=== PATIENT | female | born 1965 | race American Indian/Alaskan Native ===

== ENCOUNTER 2016-08-06 00:30 | Emergency (ER) | payer MEDICAID ==
--- NOTE | 2016-08-06 01:46 | ED PDOC ---
Arrival/HPI - General Time Seen by Provider: 08/06/16 01:21 Historian: Patient - History of Present Illness Narrative History of Present Illness (Text): 08/06/16 01:42 Latisha Seo is a 51 year old female who presents to the Emergency department complaining of a retained tampon. Patient states her tampon became stuck yesterday evening and reports she made multiple unsuccessful attempts to retrieve it. Patient denies any fever, chills, abdominal pain, urinary symptoms , or any other complaints. Time/Duration: Other (yesterday) Symptom Onset: Gradual Symptom Course: Unchanged Activities at Onset: Rest, Light Context: Home Past Medical History - Provider Review Nursing Documentation Reviewed: Yes - Infectious Disease Hx of Infectious Diseases: None - Cardiac Hx Hypertension: Yes - Hematological/Oncological Hx Anemia: Yes - Musculoskeletal/Rheumatological Hx Falls: No - Gastrointestinal Hx Gastroesophageal Reflux: Yes - Psychiatric Hx Depression: No Hx Emotional Abuse: No Hx Physical Abuse: No Hx Substance Use: No - Surgical History Hx Section: Yes Hx Orthopedic Surgery: Yes (R ANKLE) - Suicidal Assessment Feels Threatened In Home Enviroment: No Family/Social History - Physician Review Nursing Documentation Reviewed: Yes Family/Social History: No Known Family HX Smoking Status: Never Smoked Hx Alcohol Use: No Hx Substance Use: No Allergies/Home Meds Allergies/Adverse Reactions: Allergies No Known Allergies Allergy (Verified 08/06/16 01:56) Home Medications: Home Meds Medication Instructions Recorded Confirmed Aspirin [Ecotrin] 81 mg PO DAILY 10/29/15 08/06/16 Atenolol [Tenormin] 50 mg PO DAILY 10/29/15 08/06/16 Ferrous Sulfate [Iron] 325 mg PO BID 10/29/15 08/06/16 Omeprazole 40 mg PO DAILY 10/29/15 08/06/16 Triamterene/Hydrochlorothiazid 1 cap PO DAILY 10/29/15 08/06/16 [Triamterene-Hctz 37.5-25 mg Cp] amLODIPine [Norvasc] 10 mg PO DAILY 10/29/15 08/06/16 hydrALAZINE [Apresoline] 25 mg PO TID 10/29/15 08/06/16 Cetirizine HCl [Allergy Relief] 10 mg PO DAILY 08/06/16 08/06/16 Montelukast [Singulair] 10 mg PO DAILY 08/06/16 08/06/16 Review of Systems - Physician Review All systems were reviewed & negative as marked: Yes - Review of Systems Constitutional: Normal. absent: Fevers Respiratory: Normal Cardiovascular: Normal Gastrointestinal: Normal. absent: Abdominal Pain Genitourinary Female: Other (+tampon stuck). absent: Frequency, Hematuria, Urine Output Changes Musculoskeletal: Normal Skin: Normal Neurological: Normal Endocrine: Normal Hemo/Lymphatic: Normal Psychiatric: Normal Physical Exam Vital Signs Reviewed: Yes Vital Signs Temp Pulse Resp BP Pulse Ox 08/06/16 01:56 97.7 F 70 16 147/97 H 99 Temperature: Afebrile Blood Pressure: Normal Pulse: Regular Respiratory Rate: Normal Appearance: Positive for: Well-Appearing, Non-Toxic, Comfortable Pain Distress: None Mental Status: Positive for: Alert and Oriented X 3 - Systems Exam Head: Present: Atraumatic, Normocephalic Pupils: Present: PERRL Extroacular Muscles: Present: EOMI Conjunctiva: Present: Normal Mouth: Present: Moist Mucous Membranes Neck: Present: Normal Range of Motion Respiratory/Chest: Present: Clear to Auscultation, Good Air Exchange. No: Respiratory Distress, Accessory Muscle Use Cardiovascular: Present: Regular Rate and Rhythm, Normal S1, S2. No: Murmurs Abdomen: Present: Normal Bowel Sounds. No: Tenderness, Distention, Peritoneal Signs Genitourinary/Pelvic Exam: Present: Normal External Genitalia, Cervical os Closed, Other (Tampon visualized, Scribe Nicoel Tony present as wellness nurse rn). No: Cervical Motion Tendernes Back: Present: Normal Inspection Upper Extremity: Present: Normal Inspection. No: Cyanosis, Edema Lower Extremity: Present: Normal Inspection. No: Edema Neurological: Present: GCS=15, CN II-XII Intact, Speech Normal Skin: Present: Warm, Dry, Normal Color. No: Rashes Psychiatric: Present: Alert, Oriented x 3, Normal Insight, Normal Concentration Medical Decision Making ED Course and Treatment: 08/06/16 01:42 Impression: 51 year old female complaining of a retained tampon since yesterday. Differential Diagnosis included but are not limited to: foreign body Plan: -- Tampon Extraction -- Reassess and disposition Progress Notes: 08/06/16 02:07 PROCEDURE: FOREIGN BODY REMOVAL Performed by the emergency provider Timeout: A timeout to verify the correct patient, procedure, and site was performed immediately prior to the procedure. Indication: Foreign body in vaginal vault. Procedure: Tampon removed in one piece. Post-procedure: Patient tolerated the procedure well with no immediate complications. - Scribe Statement The provider has reviewed the documentation as recorded by the Jeannette Jimenez Provider Attestation: All medical record entries made by the Scribdavid were at my direction and personally dictated by me. I have reviewed the chart and agree that the record accurately reflects my personal performance of the history, physical exam, medical decision making, and the department course for this patient. I have also personally directed, reviewed, and agree with the discharge instructions and disposition. Disposition/Present on Arrival - Present on Arrival Any Indicators Present on Arrival: No History of DVT/PE: No History of Uncontrolled Diabetes: No Urinary Catheter: No History Surgical Site Infection Following: None - Disposition Have Diagnosis and Disposition been Completed?: Yes Diagnosis: Vaginal foreign body Disposition: HOME/ ROUTINE Disposition Time: 02:00 Condition: STABLE Discharge Instructions (ExitCare): Vaginal Foreign Body (ED) Additional Instructions: follow up with your doctor. return to er with worsening symptoms or concerns. Referrals: Khurram Pace [Medical Doctor] - Follow up with primary
[2016-08-06 01:55] VITALS: BMI 29.7
[2016-08-06 01:58] VITALS: BP 147/97; PULSE 70; RESP 16; TEMP 97.7; O2SAT 99
== END 2016-08-06 02:15 | disposition home or self-care (01) ==
LOC: ED 00:30
DX: T19.2XXA Foreign body in vulva and vagina, initial encounter (principal); X58.XXXA Exposure to other specified factors, initial encounter; Y92.009 Unspecified place in unspecified non-institutional (private) residence as the place of occurrence of the external cause; I10 Essential (primary) hypertension

== ENCOUNTER 2017-01-24 14:13 | Emergency (ER) | payer MEDICAID ==
[2017-01-24 14:32] VITALS: BMI 37.0
[2017-01-24] MEDS ORDERED: Morphine 2 mg/ml ISec IVP STA (14:34)
--- NOTE | 2017-01-24 14:40 | ED PDOC ---
Arrival/HPI - General Historian: Patient <Tanner Chatman A - Last Filed: 01/24/17 18:35> <Macrina Dalton - Last Filed: 01/24/17 23:36> - General Time Seen by Provider: 01/24/17 14:24 - History of Present Illness Narrative History of Present Illness (Text): 01/24/17 14:35 51yo morbidly obese female with PMHx of hypertension brought to ED by edna from Dr. Mejia's office for elevated BP. Patient notes that she has been having sharp mid upper back pain and feeling weak x 2days. Became nauseous today and having LAND. Saw her PMD today for these symptoms and her BP was 237/130 in the Doctor's office. Notes that she also had "abdominal discomfort" today. She denies chest pain, urinary symptoms, trauma, diaphoresis, LE edema, calf pain, dizziness, visual changes, focal weakness, headache, any other complaint. (Tanner Chatman A) Past Medical History - Provider Review Nursing Documentation Reviewed: Yes - Infectious Disease Hx of Infectious Diseases: None - Cardiac Hx Hypertension: Yes - Hematological/Oncological Hx Anemia: Yes - Musculoskeletal/Rheumatological Hx Falls: No - Gastrointestinal Hx Gastroesophageal Reflux: Yes - Psychiatric Hx Depression: No Hx Emotional Abuse: No Hx Physical Abuse: No Hx Substance Use: No - Surgical History Hx Section: Yes Hx Orthopedic Surgery: Yes (R ANKLE) - Suicidal Assessment Feels Threatened In Home Enviroment: No <Tanner Chatman A - Last Filed: 01/24/17 18:35> Family/Social History - Physician Review Nursing Documentation Reviewed: Yes Family/Social History: Unknown Family HX Smoking Status: Never Smoked Hx Alcohol Use: No Hx Substance Use: No <Tanner Chatman A - Last Filed: 01/24/17 18:35> Allergies/Home Meds <Tanner Chatman A - Last Filed: 01/24/17 18:35> <Macrina Dalton - Last Filed: 01/24/17 23:36> Allergies/Adverse Reactions: Allergies No Known Allergies Allergy (Verified 08/06/16 01:56) Home Medications: Home Meds Medication Instructions Recorded Confirmed Aspirin [Ecotrin] 81 mg PO DAILY 10/29/15 01/24/17 Atenolol [Tenormin] 50 mg PO DAILY 10/29/15 01/24/17 Ferrous Sulfate [Iron] 325 mg PO BID 10/29/15 01/24/17 Omeprazole 40 mg PO DAILY 10/29/15 01/24/17 Triamterene/Hydrochlorothiazid 25 mg PO DAILY 10/29/15 01/24/17 [Triamterene-Hctz 37.5-25 mg Cp] amLODIPine [Norvasc] 10 mg PO DAILY 10/29/15 01/24/17 hydrALAZINE [Apresoline] 25 mg PO DAILY 10/29/15 01/24/17 Cetirizine HCl [Allergy Relief] 10 mg PO DAILY 08/06/16 01/24/17 Montelukast [Singulair] 10 mg PO DAILY 08/06/16 01/24/17 Review of Systems - Physician Review All systems were reviewed & negative as marked: Yes - Review of Systems Constitutional: Normal Eyes: Normal ENT: Normal Respiratory: Normal Cardiovascular: LAND. absent: Chest Pain, Palpitations, Edema, Calf Pain, Orthopnea Gastrointestinal: Vomiting. absent: Abdominal Pain, Constipation, Diarrhea, Nausea, Hematochezia, Hematemesis Genitourinary Female: Normal Musculoskeletal: Back Pain Skin: Normal Neurological: Normal Endocrine: Normal Hemo/Lymphatic: Normal Psychiatric: Normal <Tanner Chatman A - Last Filed: 01/24/17 18:35> Physical Exam Vital Signs Reviewed: Yes Temperature: Afebrile Blood Pressure: Normal Pulse: Regular Respiratory Rate: Normal Appearance: Positive for: Well-Appearing, Non-Toxic, Comfortable, Other ( Morbidly obese) Pain Distress: None Mental Status: Positive for: Alert and Oriented X 3 - Systems Exam Head: Present: Atraumatic, Normocephalic Pupils: Present: PERRL Extroacular Muscles: Present: EOMI Conjunctiva: Present: Normal Mouth: Present: Moist Mucous Membranes Neck: Present: Normal Range of Motion Respiratory/Chest: Present: Clear to Auscultation, Good Air Exchange. No: Respiratory Distress, Accessory Muscle Use, Wheezes, Decreased Breath Sounds, Rales, Retracting, Rhonchi Cardiovascular: Present: Regular Rate and Rhythm, Normal S1, S2. No: Murmurs Abdomen: Present: Normal Bowel Sounds, Other (Soft). No: Tenderness, Distention , Peritoneal Signs, Rebound, Guarding, McBurney's Point Tender, Rovsing's Sign Present, Mass/Organomegaly Back: Present: Normal Inspection Upper Extremity: Present: Normal Inspection. No: Cyanosis, Edema Lower Extremity: Present: Normal Inspection. No: Edema Neurological: Present: GCS=15, CN II-XII Intact, Speech Normal, Motor Func Grossly Intact, Normal Sensory Function, Normal Cerebellar Funct, Memory Normal , Other (No focla neurological deficit) Skin: Present: Warm, Dry, Normal Color. No: Rashes Psychiatric: Present: Alert, Oriented x 3, Normal Insight, Normal Concentration <Tanner Chatman A - Last Filed: 01/24/17 18:35> Vital Signs Temp Pulse Resp BP Pulse Ox 01/24/17 18:50 69 17 156/88 H 99 01/24/17 17:55 69 18 158/99 H 98 01/24/17 17:00 75 18 171/104 H 97 01/24/17 15:57 80 16 167/106 H 97 01/24/17 15:39 88 198/129 H 01/24/17 15:32 77 17 194/129 H 97 01/24/17 15:16 98.1 F 77 18 184/117 H 97 01/24/17 14:35 79 18 184/117 H 98 Medical Decision Making <LurdesTanner A - Last Filed: 01/24/17 18:35> <Macrina Dalton - Last Filed: 01/24/17 23:36> ED Course and Treatment: 01/24/17 14:45 51yo female in ED for elevated BP, upper back pain. PT will be evaluated and BP will be managed in ED with medication. Most concerning symptoms for dissection Labs ordered Morphine, Hydralazine 10mg ordered Dissection CT ordered Will re assesses pt 01/24/17 18:36 On re evaluation pt states pain improved, but still have mild pain and valium was ordered. On r evaluation she notes that she feel much better. Zofran and protonix was also ordered. Her BP improved significantly in ED. She remain neurologically intact . Lab was unremarkable CT CTA dissection protocol Indication: HTN/Upper back pain Comparison: None available Technique: Contrast dose: 110 mL Omnipaque 350 Total exam DLP: 1664.15 Axial computed tomographic angiogram images of the abdomen and pelvis were performed after bolus administration of intravenous contrast. Sagittal coronal reformatted images were generated and reviewed. This CT exam was performed using 1 or more of the falling dose reduction techniques: Automated exposure control, adjustment of the MAA and/or kV according to patient size, and/or use of iterative reconstruction technique. Findings: Visualized inferior thyroid gland appears unremarkable. The unenhanced mediastinal and hilar vascular structures appear grossly unremarkable. Cardiomegaly. Ascending aortic aneurysm approximately 4.2 cm in AP dimension. The remainder of the thoracic and abdominal aorta appear within normal limits of caliber. No evidence of dissection. There is normal course and contour of the common iliac arteries. The celiac artery origin is widely patent. The superior mesenteric artery origin is widely patent. The inferior mesenteric artery origin is patent. Bilateral renal arteries appear patent. The liver appears within normal limits of size and morphology. The pancreas, spleen, adrenal glands, and gallbladder appear unremarkable. The kidneys enhance symmetrically without evidence of hydronephrosis or obstructing renal calculi. No bulky adenopathy identified. Visualized bowel loops appear within normal limits of caliber without evidence of obstruction. Diverticulosis without CT evidence of acute diverticulitis. The appendix appears within normal limits of caliber. No secondary signs of acute appendicitis. No inflammatory changes are seen in the right lower quadrant to suggest acute appendicitis. No definite free air. The urinary bladder appears unremarkable. Lobulated uterus appears consistent with fibroids. Tampon. 13 mm probable splenule. No significant pelvic free fluid is identified. 10 mm anterolisthesis of L5 on S1. Impression: Ascending aortic aneurysm approximately 4.2 cm in AP dimension. Diverticulosis without CT evidence of acute diverticulitis. Fibroid uterus. Additional incidental findings as above. Pt's back pain is likely MS in nature, hence she notes pain with movement and palpation. Result was DW Dr. Mejia and he recommends that pt be discharged home and instructed to continue with her medications. States patient should follow up with his office. (Tanner Chatman) - Lab Interpretations Lab Results: 01/24/17 15:13 01/24/17 15:13 Lab Results 01/24/17 17:09: Urine Color Yellow, Urine Appearance Clear, Urine pH 6.0, Ur Specific [place] 1.015, Urine Protein Negative, Urine Glucose (UA) Negative, Urine Ketones Negative, Urine Blood Negative, Urine Nitrate Negative, Urine Bilirubin Negative, Urine Urobilinogen 0.2, Ur Leukocyte Esterase Negative 01/24/17 15:13: Sodium 139, Potassium 3.6, Chloride 106, Carbon Dioxide 26, Anion Gap 12, BUN 11, Creatinine 0.9, Est GFR ( Amer) > 60, Est GFR (Non- Af Amer) > 60, Random Glucose 95, Calcium 8.6, Magnesium 1.8, Total Bilirubin 0.6, AST 26, ALT 27, Alkaline Phosphatase 106, Lactate Dehydrogenase 585, Total Creatine Kinase 111, Troponin I 0.01, NT-Pro-B Natriuret Pep 106, Total Protein 7.6, Albumin 4.0, Globulin 3.6, Albumin/Globulin Ratio 1.1 01/24/17 15:13: PT 10.9, INR 1.00, APTT 33.9 01/24/17 15:13: WBC 6.5, RBC 4.20, Hgb 11.1 L, Hct 35.4 L, MCV 84.3, MCH 26.4, MCHC 31.4, RDW 15.2 H, Plt Count 313, MPV 9.2, Gran % 81.1 H, Lymph % (Auto) 12.2 L, [place] % (Auto) 4.8, Eos % (Auto) 1.7, Baso % (Auto) 0.2, Gran # 5.23, Lymph # 0.8 L, [place] # 0.3, Eos # 0.1, Baso # 0.01 - RAD Interpretation Radiology Orders: 01/24/17 14:32 ANGIOGRAPHY DISECTION PROTOCOL [CT] Stat - Medication Orders Current Medication Orders: Discontinued Medications Diazepam (Valium) 5 mg IVP ONCE ONE PRN Reason: Protocol Stop: 01/24/17 17:34 Last Admin: 01/24/17 18:14 Dose: 5 mg IVP Administration Document 01/24/17 18:14 SF (Rec: 01/24/17 18:[address] [facility] [id number]) Charges for Administration # of IVP Administrations 1 Hydralazine HCl (Apresoline) 10 mg IVP STAT STA Stop: 01/24/17 14:56 Last Admin: 01/24/17 15:39 Dose: 10 mg IVP Administration Document 01/24/17 15:39 SF (Rec: 01/24/17 15:[address] [facility] [id number]) Charges for Administration # of IVP Administrations 1 MAR Pulse and Blood Pressure Document 01/24/17 15:39 SF (Rec: 01/24/17 15:39 [facility] Pulse Pulse Rate (60-90) 88 Blood Pressure Blood Pressure (100/60-150/90) 198/129 Morphine Sulfate (Morphine) 2 mg IVP STAT STA Stop: 01/24/17 14:35 Last Admin: 01/24/17 15:33 Dose: 2 mg MAR Pain Assessment Document 01/24/17 15:33 SF (Rec: 01/24/17 15:33 [facility] Pain Reassessment Is this a pain reassessment? Yes Sleep Is patient sleeping during reassessment? No Presence of Pain Presence of Pain Yes Location Pain Location Body Site Back IVP Administration Document 01/24/17 15:33 SF (Rec: 01/24/17 15:33 SF [place] [id number]) Charges for Administration # of IVP Administrations 1 Ondansetron HCl (Zofran Inj) 4 mg IVP STAT STA Stop: 01/24/17 18:10 Last Admin: 01/24/17 18:14 Dose: Pantoprazole Sodium (Protonix Inj) 40 mg IVP STAT STA Stop: 01/24/17 18:10 Last Admin: 01/24/17 18:32 Dose: 40 mg IVP Administration Document 01/24/17 18:32 SF (Rec: 01/24/17 18:40 SF [place] [id number]) Charges for Administration # of IVP Administrations 1 - PA / PRESS LOADER / Resident Statement / has reviewed & agrees with the documentation as recorded. <Macrina Dalton - Last Filed: 01/24/17 23:36> Disposition/Present on Arrival - Present on Arrival Any Indicators Present on Arrival: No History of DVT/PE: No History of Uncontrolled Diabetes: No Urinary Catheter: No History Surgical Site Infection Following: None - Disposition Have Diagnosis and Disposition been Completed?: Yes Disposition Time: 18:30 Patient Plan: Discharge <Tanner Chatman - Last Filed: 01/24/17 18:35> <Macrina Dalton - Last Filed: 01/24/17 23:36> - Disposition Diagnosis: Hypertension, Back pain, Vomiting Disposition: HOME/ ROUTINE Condition: STABLE Discharge Instructions (ExitCare): Hypertension (ED), Back Pain (ED) Additional Instructions: Follow up with your doctor continue with your medication at home Return to ED for any new or worsening symptoms Prescriptions: Cyclobenzaprine [Cyclobenzaprine HCl] 10 mg PO TID #10 tab Ibuprofen [Motrin Tab] 600 mg PO Q6 #20 tab Ondansetron ODT [Zofran ODT] 4 mg PO Q6 #8 odt Referrals: Christiano Mejia MD [Primary Care Provider] - Follow up with primary Forms: [employer] ([place]ian)
[2017-01-24 15:17] VITALS: TEMP 98.1
[2017-01-24 15:46] LABS: BASO # 0.01 K/mm3 (0.0-2.0); BASO % 0.2 % (0.0-3.0); EOS # 0.1 (0.0-0.7); EOS % 1.7 % (1.5-5.0); GRAN # 5.23 (1.4-6.5); GRAN % 81.1 % (50.0-68.0); HEMATOCRIT 35.4 % (36.0-48.0); LYMPH # 0.8 (1.2-3.4); LYMPH % 12.2 % (22.0-35.0); MEAN CELL VOLUME 84.3 fl (80.0-105.0); MEAN CORPUSCULAR HEMOGLOBIN 26.4 pg (25.0-35.0); MEAN CORPUSCULAR HGB CONC 31.4 g/dl (31.0-37.0); MEAN PLATELET VOLUME 9.2 fl (7.0-11.0); MONO # 0.3 (0.1-0.6); MONO % 4.8 % (1.0-6.0); RED CELL DISTRIBUTION WIDTH 15.2 % (11.5-14.5); WHITE BLOOD COUNT 6.5 10^3/ul (4.5-11.0)
[2017-01-24 15:56] LABS: ALB/GLOB RATIO 1.1 (1.1-1.8); ALKALINE PHOSPHATASE 106 U/L (38-126); ALT/SGPT 27 U/L (7-56); AST/SGOT 26 U/L (14-36); BILIRUBIN,TOTAL 0.6 mg/dL (0.2-1.3); BLOOD UREA NITROGEN 11 mg/dL (7-21); CALCIUM 8.6 mg/dL (8.4-10.5); CARBON DIOXIDE 26 mmol/L (21-33); CHLORIDE 106 mmol/L (98-107); GFR AFRICAN-AMERICAN > 60; GLUCOSE,RANDOM 95 mg/dL (70-110); MAGNESIUM 1.8 mg/dL (1.7-2.2); POTASSIUM 3.6 mmol/L (3.6-5.0); SODIUM 139 mmol/L (132-148); TOTAL PROTEIN 7.6 g/dL (5.8-8.3)
[2017-01-24 16:06] LABS: PARTIAL THROMBOPLASTIN TIME 33.9 Seconds (25.1-36.5)
[2017-01-24 16:13] LABS: TROPONIN I 0.01 ng/mL
--- NOTE | 2017-01-24 17:29 | CT ---
CTA dissection protocol Indication: HTN/Upper back pain Comparison: None available Technique: Contrast dose: 110 mL Omnipaque 350 Total exam DLP: 1664.15 Axial computed tomographic angiogram images of the abdomen and pelvis were performed after bolus administration of intravenous contrast. Sagittal coronal reformatted images were generated and reviewed. This CT exam was performed using 1 or more of the falling dose reduction techniques: Automated exposure control, adjustment of the MAA and/or kV according to patient size, and/or use of iterative reconstruction technique. Findings: Visualized inferior thyroid gland appears unremarkable. The unenhanced mediastinal and hilar vascular structures appear grossly unremarkable. Cardiomegaly. Ascending aortic aneurysm approximately 4.2 cm in AP dimension. The remainder of the thoracic and abdominal aorta appear within normal limits of caliber. No evidence of dissection. There is normal course and contour of the common iliac arteries. The celiac artery origin is widely patent. The superior mesenteric artery origin is widely patent. The inferior mesenteric artery origin is patent. Bilateral renal arteries appear patent. The liver appears within normal limits of size and morphology. The pancreas, spleen, adrenal glands, and gallbladder appear unremarkable. The kidneys enhance symmetrically without evidence of hydronephrosis or obstructing renal calculi. No bulky adenopathy identified. Visualized bowel loops appear within normal limits of caliber without evidence of obstruction. Diverticulosis without CT evidence of acute diverticulitis. The appendix appears within normal limits of caliber. No secondary signs of acute appendicitis. No inflammatory changes are seen in the right lower quadrant to suggest acute appendicitis. No definite free air. The urinary bladder appears unremarkable. Lobulated uterus appears consistent with fibroids. Tampon. 13 mm probable splenule. No significant pelvic free fluid is identified. 10 mm anterolisthesis of L5 on S1. Impression: Ascending aortic aneurysm approximately 4.2 cm in AP dimension. Diverticulosis without CT evidence of acute diverticulitis. Fibroid uterus. Additional incidental findings as above.
[2017-01-24] MEDS ORDERED: diaZEpam 10 mg/2 ml Inj IVP ONE (17:33)
[2017-01-24 17:55] VITALS: PULSE 69
[2017-01-24 18:09] LABS: URINE BILIRUBIN NEGATIVE (NEGATIVE); URINE BLOOD NEGATIVE (NEGATIVE); URINE GLUCOSE (UA) NEGATIVE (NEGATIVE); URINE KETONE NEGATIVE (NEGATIVE); URINE LEUKOCYTE ESTERASE NEGATIVE Leu/uL (NEGATIVE); URINE PROTEIN NEGATIVE mg/dL (<30 mg/dL); URINE UROBILINOGEN 0.2 E.U./dL (<1 E.U./dL)
[2017-01-24 18:10] LABS: URINE APPEARANCE CLEAR (CLEAR); URINE COLOR YELLOW (YELLOW)
[2017-01-24 19:23] VITALS: BP 156/88; RESP 17; O2SAT 99
--- NOTE | 2017-01-25 17:41 | CARD ---
APPROVED REPORT EKG Measurement Heart [id number] <Conclusion> Normal sinus rhythm Left axis deviation Prolonged QT Abnormal ECG
== END 2017-01-24 18:50 | disposition home or self-care (01) ==
LOC: ED 14:13
DX: I10 Essential (primary) hypertension (principal); M54.9 Dorsalgia, unspecified; R11.10 Vomiting, unspecified; K21.9 Gastro-esophageal reflux disease without esophagitis; D64.9 Anemia, unspecified
CPT/HCPCS: 71275; 74175; 80053; 81003; 82550; 83615; 83735; 83880; 84484; 85025; 85610; 85730; 93005; 96374; 96375; 99285; C9113; J0360; J2270; J2405; J3360; Q9967

== ENCOUNTER 2018-05-19 13:24 | Emergency (ER) | payer SELFPAY, MEDICAID | END 2018-05-19 14:48 | disposition home or self-care (01) | LOC: ED 13:24 ==